=== PATIENT | female | born 1985 | race Caucasian/White ===

== ENCOUNTER 2022-11-07 13:13 | Observation (INO) | payer OTHER | END 2022-11-07 14:50 | disposition home or self-care (01) | LOC: SPU 13:13 | PROVIDERS: ADMIT Specialist; ATTEND Specialist | DX: O09.523 Supervision of elderly multigravida, third trimester (principal); Z3A.34 34 weeks gestation of pregnancy | CPT/HCPCS: 59025; G0378; G0379 ==

== ENCOUNTER 2022-11-20 15:28 | Observation (INO) | payer OTHER ==
[~2022-11-20] VITALS: Ht 172.7 cm; Wt 90.3 kg
== END 2022-11-20 18:10 | disposition home or self-care (01) ==
LOC: SPU 15:28
PROVIDERS: ADMIT Obstetrics & Gynecology; ATTEND Specialist
DX: O09.513 Supervision of elderly primigravida, third trimester (principal); Z3A.36 36 weeks gestation of pregnancy
CPT/HCPCS: 76819; G0378

== ENCOUNTER 2022-12-16 19:15 | Inpatient (IN) | payer OTHER ==
[~2022-12-16] VITALS: Ht 172.7 cm; Wt 94.3 kg
[2022-12-16 21:31] VITALS: BP_SYST 120
[2022-12-16] MEDS ORDERED: DINOPROSTONE 10 MG SUPP VG ONE (21:45)
[2022-12-16] MEDS ORDERED: TERBUTALINE SULFATE 1 MG/ML VIAL SUBCUT ONE (21:45)
[2022-12-16] MEDS ORDERED: OXYTOCIN/0.9 % SODIUM CHLORIDE 1,000 ML IV SCH (21:45)
[2022-12-16] MEDS ORDERED: NALBUPHINE HCL 10 MG/ML AMP IVP PRN (21:45)
[2022-12-16] MEDS ORDERED: LR 1,000 ML IV SCH (21:45)
[2022-12-16] MEDS ORDERED: NALBUPHINE HCL 10 MG/ML AMP IM PRN (21:45)
[2022-12-16] MEDS ORDERED: LIDOCAINE JELLY 5 ML TUBE MM ONE (23:30)
[2022-12-17] MEDS ORDERED: LIDOCAINE 2% JELLY UROJECT 10 ML MM ONE (00:07)
[2022-12-17 02:29] LABS: BASOPHILS % (AUTO) 0.2 % (0.0-2.0); EOSINOPHILS # (AUTO) 0.2 K/uL (0.0-0.4); EOSINOPHILS % (AUTO) 1.9 % (0.0-4.0); HEMATOCRIT 29.8 % (36-48); HEMOGLOBIN 10.5 g/dL (12.0-16.0); LYMPHOCYTES # (AUTO) 2.4 K/uL (1.0-5.5); LYMPHOCYTES % (AUTO) 24.8 % (20.5-51.5); MEAN CORPUSCULAR HEMOGLOBIN 32 pg (27-31); MEAN CORPUSCULAR HGB CONC 35 % (32-36); MEAN CORPUSCULAR VOLUME 91 fL (79.0-98.0); MONOCYTES # (AUTO) 0.9 K/uL (0.0-1.0); MONOCYTES % (AUTO) 9.4 % (1.7-9.3); NEUTROPHILS # (AUTO) 6.2 K/uL (1.8-7.7); NEUTROPHILS % (AUTO) 63.7 % (40.0-70.0); PLATELET COUNT (AUTO) 213 K/uL (130-430); RED BLOOD CELL COUNT(AUTO) 3.27 MIL/uL (4.2-6.2); RED CELL DISTRIBUTION WIDTH 13.4 % (9.0-15.0); WHITE BLOOD COUNT (AUTO) 9.8 K/uL (4.8-10.8)
[2022-12-17] MEDS ORDERED: fentaNYL CITRATE/PF 100 MCG/2 ML AMP ONE (03:21)
[2022-12-17] MEDS ORDERED: ROPIVACAINE HCL/PF 0.2% 200 ML ONE (03:21)
[2022-12-17] MEDS ORDERED: LR 500 ML IV ONE (04:00)
[2022-12-17] MEDS ORDERED: FENT2mCg/mL-ROPIVA0.2%/NS EPID 200 ML EP SCH (04:00)
[2022-12-17] MEDS ORDERED: AMPICILLIN SODIUM 2 GM in NS 100 ML IV SCH (06:00)
[2022-12-17] MEDS ORDERED: LIDOCAINE PF 1% 30ML(POUR BTL) INJ ONE (09:40)
[2022-12-17] MEDS ORDERED: NALOXONE HCL 0.4 MG/ML AMP (NARCAN) ONE (09:40)
[2022-12-17] MEDS ORDERED: LIGHT MINERAL OIL 10 ML VIAL MC ONE (09:40)
[2022-12-17] MEDS ORDERED: MEASLES,MUMPS&RUBELLA VACC/PF 12500 UNIT/0.5 ML VIAL SUBQ PRN (10:30)
[2022-12-17] MEDS ORDERED: OXYTOCIN/0.9 % SODIUM CHLORIDE 1,000 ML IV SCH (10:30)
[2022-12-17] MEDS ORDERED: OXYCODONE/ACETAMINOPHEN 5-325 TABLET PO PRN ×2 (10:30)
[2022-12-17] MEDS ORDERED: METHYLERGONOVINE MALEATE 0.2 MG TABLET PO PRN (10:30)
[2022-12-17] MEDS ORDERED: OXYTOCIN/0.9 % SODIUM CHLORIDE 1,000 ML IV ONE (10:30)
[2022-12-17] MEDS ORDERED: HYDROcodone/ACETAMIN 5-325 MG TAB (NORCO/ VICODIN) PO PRN (10:30)
[2022-12-17] MEDS ORDERED: HYDROCORTISONE 0.5% CREAM 28.4 GM CREAM.GM. TP PRN (10:30)
[2022-12-17] MEDS ORDERED: RHO(D) IMMUNE GLOBULIN/MALTOSE 1500 UNITS/1.3 ML (WINHRO) IM PRN (10:30)
[2022-12-17] MEDS ORDERED: NALOXONE HCL 0.4 MG/ML AMP (NARCAN) IVP PRN (10:30)
[2022-12-17] MEDS ORDERED: DIPHTH,PERTUSS(ACELL),TET VAC 0.5 ML VIAL (Tdap) I.M. PRN (10:30)
[2022-12-17] MEDS ORDERED: WITCH HAZEL LEAF 1 MED.PAD MED.PAD TP PRN (10:30)
[2022-12-17] MEDS ORDERED: LANOLIN 7 GM OINT. TP PRN (10:30)
[2022-12-17] MEDS ORDERED: ANUSOL 1 EA SUPP.RECT (PREPARATION H) RC PRN (10:30)
[2022-12-17] MEDS ORDERED: DERMOPLAST SPRAY TP PRN (10:30)
[2022-12-17] MEDS: IBUPROFEN 600 MG TABLET PO SCH ×3 (12:00→20:57)
[2022-12-17] MEDS ORDERED: TEMAZEPAM 7.5 MG CAPSULE PO SCH (21:00)
[2022-12-17] MEDS ORDERED: TEMAZEPAM 15 MG CAPSULE PO PRN (21:00)
[2022-12-17] MEDS ORDERED: SENNOSIDES/DOCUSATE SODIUM 1 TAB TABLET(SENOKOT-S) PO SCH (21:00)
[2022-12-18] MEDS: IBUPROFEN 600 MG TABLET PO SCH ×2 (03:00→13:50)
[2022-12-18 07:13] LABS: BASOPHILS % (AUTO) 0.3 % (0.0-2.0); EOSINOPHILS # (AUTO) 0.2 K/uL (0.0-0.4); EOSINOPHILS % (AUTO) 2.1 % (0.0-4.0); HEMATOCRIT 30.6 % (36-48); HEMOGLOBIN 10.7 g/dL (12.0-16.0); LYMPHOCYTES # (AUTO) 2.4 K/uL (1.0-5.5); LYMPHOCYTES % (AUTO) 22.4 % (20.5-51.5); MEAN CORPUSCULAR HEMOGLOBIN 32 pg (27-31); MEAN CORPUSCULAR HGB CONC 35 % (32-36); MEAN CORPUSCULAR VOLUME 93 fL (79.0-98.0); MONOCYTES # (AUTO) 0.8 K/uL (0.0-1.0); MONOCYTES % (AUTO) 7.3 % (1.7-9.3); NEUTROPHILS # (AUTO) 7.2 K/uL (1.8-7.7); NEUTROPHILS % (AUTO) 67.9 % (40.0-70.0); PLATELET COUNT (AUTO) 184 K/uL (130-430); RED BLOOD CELL COUNT(AUTO) 3.29 MIL/uL (4.2-6.2); RED CELL DISTRIBUTION WIDTH 13.3 % (9.0-15.0); WHITE BLOOD COUNT (AUTO) 10.6 K/uL (4.8-10.8)
[2022-12-18] MEDS ORDERED: DOCUSATE SODIUM 100 MG CAPSULE PO SCH (09:00)
== END 2022-12-18 16:40 | disposition home or self-care (01) | DRG 805 ==
LOC: SPU 20:30
PROVIDERS: ADMIT Specialist; ATTEND Specialist
PROC: 10E0XZZ Delivery of Products of Conception, External Approach (ICD-10-PCS; principal; 2022-12-17)
PROC: 3E0R3BZ Introduction of Anesthetic Agent into Spinal Canal, Percutaneous Approach (ICD-10-PCS; 2022-12-17)
PROC: 00HU33Z Insertion of Infusion Device into Spinal Canal, Percutaneous Approach (ICD-10-PCS; 2022-12-17)
PROC: 3E0234Z Introduction of Serum, Toxoid and Vaccine into Muscle, Percutaneous Approach (ICD-10-PCS; 2022-12-17)
DX: O41.03X0 Oligohydramnios, third trimester, not applicable or unspecified (principal); O45.93 Premature separation of placenta, unspecified, third trimester; Z37.0 Single live birth; O36.8130 Decreased fetal movements, third trimester, not applicable or unspecified; Z3A.39 39 weeks gestation of pregnancy; Z20.822 Contact with and (suspected) exposure to COVID-19
CPT/HCPCS: 36415; 81002; 82947; 85025; 86592; 86886; 86900; 86901; 94760; 96361; 96365; 99285; J0290; J2001; J2310; J2590; J3010